=== PATIENT | female | born 1990 | race Caucasian/White ===

== ENCOUNTER 2017-04-14 15:14 | Emergency (ER) | payer OTHER ==
[~2017-04-14] VITALS: Ht 170.2 cm; Wt 52.5 kg
[~2017-04-14 15:14] MED LIST: PRENTAB62 PO; Z.0.NO CURRENT MEDS; ZOFR4TAB3 SL
[2017-04-14 15:15] VITALS: BP 153/85; PULSE 87; RESP 16; TEMP 98; O2SAT 97
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
== END 2017-04-14 17:43 | disposition home or self-care (01) ==
LOC: NEPD 15:14
DX: S00.532A Contusion of oral cavity, initial encounter (principal); F17.200 Nicotine dependence, unspecified, uncomplicated; X58.XXXA Exposure to other specified factors, initial encounter
CPT/HCPCS: 99281